=== PATIENT | male | born 1990 | race Hispanic/Latino ===

== ENCOUNTER → 2021-11-27 09:42 | Outpatient (CLI) | payer OTHER, SELFPAY ==
--- NOTE | 2021-11-27 | DI.RAD.S_ITS ---
PROCEDURE: FL UPPER GI SMALL BOWEL INDICATIONS: Gastro-esophageal reflux disease without esophagitis COMPARISON: None. FINDINGS: KUB: Preprocedural sheriff film shows a normal bowel gas pattern. No suspicious abdominal calcifications. Visualized solid organ contours appear normal in size. No suspicious bony abnormalities. Esophagus: Air-contrast views demonstrate a normal mucosal pattern. On single-contrast views, there is normal peristalsis. No fixed strictures, extrinsic mass effects, or diverticula. No hiatal hernias or elicited gastroesophageal reflux. There is normal transit of a calibrated barium tablet through the esophagus. Stomach: The gastric lumen is normally distensible, and has normal rugal fold thickness. No mucosal masses or ulcers. The pylorus and duodenal bulb have a normal morphology. Small bowel: Duodenal folds appear normal in thickness. There is normal transit time of barium through the small intestine. Small bowel loops appear normal in caliber throughout. Jejunal and ileal folds are smooth and normal in thickness. No strictures, intraluminal masses, or extrinsic mass effects. The terminal ileum is identified and appears normal. IMPRESSION: Normal examination. Dictated by: Isatu Garcia MD, PhD on 11/27/2021 at 12:10 Approved by: Isatu Garcia MD, PhD on 11/27/2021 at 12:15
== END ==
PROVIDERS: Referring Provider Internal Medicine; Visit Provider Internal Medicine
DX: K21.9 Gastro-esophageal reflux disease without esophagitis (principal); R14.1 Gas pain; R14.2 Eructation
CPT/HCPCS: 74240; 74248